=== PATIENT | male | born 1980 | race American Indian/Alaskan Native ===

== ENCOUNTER 2018-03-20 09:04 | Emergency (ER) | payer SELFPAY ==
[2018-03-20 09:40] VITALS: TEMP 97.9; BMI 29.0
--- NOTE | 2018-03-20 10:06 | ED PDOC ---
Arrival/HPI - General Chief Complaint: Lower Extremity Problem/Injury Time Seen by Provider: 03/20/18 09:55 Historian: Patient - History of Present Illness Narrative History of Present Illness (Text): 03/20/18 09:55 37 y/o male, no pmh, nkda, c/o rt. knee injury and pain x 2 days. Pt. stated that he was playing basketball, jump and twisted which he heard "popping" sound but he is able to walk and stand, stated that it started to hurt him today, no ankle or thigh pain, no foot pain, able to bear weight and walk, no numbness or tingling, no calf pain, no other medical or psychological complaints. Past Medical History - Provider Review Nursing Documentation Reviewed: Yes - Musculoskeletal/Rheumatological Hx Musculoskeletal Disorders: Yes Hx Back Pain: Yes - Psychiatric Hx Substance Use: Yes Family/Social History - Physician Review Nursing Documentation Reviewed: Yes Family/Social History: Unknown Family HX Smoking Status: Light Smoker < 10 Cigarettes Daily Hx Alcohol Use: No Hx Substance Use: Yes Substance used: marijuana Allergies/Home Meds Allergies/Adverse Reactions: Allergies No Known Allergies Allergy (Verified 03/20/18 09:39) Review of Systems - Review of Systems Constitutional: absent: Fatigue, Fevers Eyes: absent: Vision Changes ENT: absent: Hearing Changes Respiratory: absent: SOB, Cough Cardiovascular: absent: Chest Pain Gastrointestinal: absent: Abdominal Pain, Nausea, Vomiting Genitourinary Male: absent: Dysuria, Frequency Musculoskeletal: Arthralgias. absent: Back Pain, Neck Pain, Joint Swelling, Myalgias Skin: absent: Rash, Pruritis Hemo/Lymphatic: absent: Adenopathy Psychiatric: absent: Anxiety, Depression, Suicidal Ideation Physical Exam Vital Signs Reviewed: Yes Vital Signs Temp Pulse Resp BP Pulse Ox 03/20/18 09:39 97.9 F 61 17 154/61 H 99 Temperature: Afebrile Blood Pressure: Hypertensive Pulse: Regular Respiratory Rate: Normal Appearance: Positive for: Well-Appearing, Non-Toxic, Comfortable Pain Distress: Mild Mental Status: Positive for: Alert and Oriented X 3 - Systems Exam Head: Present: Atraumatic, Normocephalic Pupils: Present: PERRL Extroacular Muscles: Present: EOMI Conjunctiva: Present: Normal Mouth: Present: Moist Mucous Membranes Neck: Present: Normal Range of Motion Respiratory/Chest: Present: Clear to Auscultation, Good Air Exchange. No: Respiratory Distress, Accessory Muscle Use Cardiovascular: Present: Regular Rate and Rhythm, Normal S1, S2. No: Murmurs Abdomen: No: Tenderness, Distention, Peritoneal Signs, Rebound, Guarding Back: Present: Normal Inspection Upper Extremity: Present: Normal Inspection. No: Cyanosis, Edema Lower Extremity: Present: Normal Inspection, Other (RLE: +ttp on the anterior medial aspect on the knee with very mild swelling, negative ector and pretty signs, FROM without limitation, sensation intact, motor 5/5, +DPPT pulses, capillary refill< 2 seconds, neurovascular intact, no skin erythematous/cellulitis). No: Edema Neurological: Present: GCS=15, CN II-XII Intact, Speech Normal Skin: Present: Warm, Dry, Normal Color. No: Rashes Psychiatric: Present: Alert, Oriented x 3, Normal Insight, Normal Concentration Medical Decision Making ED Course and Treatment: 03/20/18 10:10 -Rt. knee xray -RLE Venuous doppler -Pt. refused pain med -observe and reassess 03/20/18 11:21 -RLE Venuous doppler: No sonographic evidence for deep venous thrombosis in the visualized segments of the right lower extremity. -Rt. knee xray: Normal radiographs of the right knee. -All labs/radiology results discussed with the patient, advised outpatient MRI of the rt. knee if pain persist over 7 days. -Discharge home with naproxen, prachi wrap, crutches, ice compression, non-weight bearing, follow up with your own pmd and orthopedic within 2 days, out patient MRI of the rt. knee if pain persist, return to the ER for any new or worsening signs or symptoms. - RAD Interpretation Radiology Orders: RLE Venuous Doppler: PROCEDURE: Right lower extremity venous US HISTORY: Leg pain and swelling. Evaluate for DVT. PHYSICIAN(S): Bhargav Wilkes M.D. TECHNIQUE: Duplex sonography and color-flow Doppler with graded compression were used to evaluate the deep venous system of the right lower extremity. FINDINGS: The visualized deep venous system of the right lower extremity is sonographically normal and compressible. Normal waveforms and augmentation are seen. There is no sonographic evidence for deep venous thrombosis in the visualized segments of the right lower extremity. IMPRESSION: 1. No sonographic evidence for deep venous thrombosis in the visualized segments of the right lower extremity. Rt. knee xray: Date of service: 03/20/2018 PROCEDURE: Right Knee Radiographs. HISTORY: rt. knee injury, pain on anterior medial COMPARISON: None. FINDINGS: BONES: Normal. No fracture. JOINTS: Normal. No osteoarthritis. JOINT EFFUSION: None. OTHER FINDINGS: None. IMPRESSION: Normal radiographs of the right knee. Hotel Night Auditor: Radiologist - PA / CAR RENTAL SERVICE ATTENDANT / Resident Statement / has reviewed & agrees with the documentation as recorded. Disposition/Present on Arrival - Present on Arrival Any Indicators Present on Arrival: No History of DVT/PE: No History of Uncontrolled Diabetes: No Urinary Catheter: No History of Decub. Ulcer: No History Surgical Site Infection Following: None - Disposition Have Diagnosis and Disposition been Completed?: Yes Diagnosis: Knee injury, Knee pain Disposition: HOME/ ROUTINE Disposition Time: 11:24 Patient Plan: Discharge Condition: GOOD Additional Instructions: -Discharge home with naproxen, prachi wrap, crutches, ice compression, non-weight bearing, follow up with your own pmd and orthopedic within 2 days, out patient MRI of the rt. knee if pain persist, return to the ER for any new or worsening signs or symptoms. Prescriptions: Naproxen 500 mg PO BID PRN #20 tablet PRN Reason: Other Referrals: PCP,NO [Primary Care Provider] - Follow up with primary Jose David Olvera MD [Staff Provider] - Follow up with primary [facility] [place] [Outside] - Follow up with primary Forms: [employer] ([place]ayan), WORK NOTE
--- NOTE | 2018-03-20 11:18 | US ---
PROCEDURE: Right lower extremity venous US HISTORY: Leg pain and swelling. Evaluate for DVT. PHYSICIAN(S): Bhargav Wilkes M.D. TECHNIQUE: Duplex sonography and color-flow Doppler with graded compression were used to evaluate the deep venous system of the right lower extremity. FINDINGS: The visualized deep venous system of the right lower extremity is sonographically normal and compressible. Normal waveforms and augmentation are seen. There is no sonographic evidence for deep venous thrombosis in the visualized segments of the right lower extremity. IMPRESSION: 1. No sonographic evidence for deep venous thrombosis in the visualized segments of the right lower extremity.
--- NOTE | 2018-03-20 11:36 | RAD ---
Date of service: 03/20/2018 PROCEDURE: Right Knee Radiographs. HISTORY: rt. knee injury, pain on anterior medial COMPARISON: None. FINDINGS: BONES: Normal. No fracture. JOINTS: Normal. No osteoarthritis. JOINT EFFUSION: None. OTHER FINDINGS: None. IMPRESSION: Normal radiographs of the right knee.
[2018-03-20 11:40] VITALS: BP 136/79; PULSE 83; RESP 18; O2SAT 100
== END 2018-03-20 11:40 | disposition home or self-care (01) ==
LOC: ED 09:04 → MERGE 09:04 → ED 11:40
DX: S89.91XA Unspecified injury of right lower leg, initial encounter (principal); X50.1XXA Overexertion from prolonged static or awkward postures, initial encounter; Y93.67 Activity, basketball; Y92.310 Basketball court as the place of occurrence of the external cause; M25.561 Pain in right knee